=== PATIENT | female | born 1960 | race Caucasian/White ===

== ENCOUNTER 2019-07-28 12:26 | Inpatient (IN) | payer MEDICAID ==
[~2019-07-28] VITALS: Ht 160 cm; Wt 81.2 kg
[2019-07-28 13:19] VITALS: BP 127/77
[2019-07-28] MEDS ORDERED: HALOPERIDOL 5 MG TABLET PO PRN (13:45)
[2019-07-28] MEDS ORDERED: ZOLPIDEM TARTRATE 10 MG TABLET PO PRN (13:45)
[2019-07-28 14:47] VITALS: BP 127/77
[2019-07-28] MEDS: LORazepam 2 MG TABLET PO PRN (16:57)
[2019-07-28] MEDS ORDERED: INFLUENZA VIRUS VACCINE QVS 2019-20 (3YR+)/PF 60 MCG/0.5 ML SYRINGE IM ONE (17:00)
[2019-07-28 17:32] VITALS: BP 106/74
[2019-07-28] MEDS ORDERED: LOPERAMIDE HCL 2 MG CAPSULE PO PRN (20:45)
[2019-07-28] MEDS ORDERED: ONDANSETRON HCL 4 MG TABLET PO PRN (20:45)
[2019-07-28] MEDS ORDERED: IBUPROFEN 400 MG TABLET PO PRN (20:45)
[2019-07-28] MEDS ORDERED: NICOTINE 14 MG/24 HOUR PATCH TD PRN (20:45)
[2019-07-28] MEDS ORDERED: MAG HYDROX/AL HYDROX/SIMETH ES 30 ML SUSPENSION UDCUP PO PRN (20:45)
[2019-07-28] MEDS ORDERED: CloNIDine HCL 0.1 MG TABLET PO PRN (20:45)
[2019-07-28] MEDS ORDERED: ACETAMINOPHEN 325 MG TABLET PO PRN (20:45)
[2019-07-28] MEDS ORDERED: ALBUTEROL SULFATE HFA 90 MCG/PUFF 8 GM INHALER IH PRN (20:45)
[2019-07-28] MEDS ORDERED: PETROLATUM,WHITE 28 GM JELLY TP PRN (20:45)
[2019-07-28] MEDS ORDERED: GuaiFENesin/D-METHORPHAN [SUGAR-FREE] 200-20MG/10 ML SYRUP UDCUP PO PRN (20:45)
[2019-07-28] MEDS ORDERED: DOCUSATE SODIUM 100 MG CAPSULE PO PRN (20:45)
[2019-07-29 07:19] LABS: HEMOGLOBIN A1C 5.8 % (4.5-6.2)
[2019-07-29 07:42] LABS: CHOL/HDL RATIO 4.9 (3.9-5.7); FREE T4 (FREE THYROXINE) 1.11 ng/dL (0.76-1.46); THYROID STIMULATING HORMONE 1.3 uIU/mL (0.36-3.74)
[2019-07-29 08:47] LABS: AMPHET/METH SCREEN,URINE NEGATIVE (NEGATIVE); BARBITURATE SCREEN, URINE NEGATIVE (NEGATIVE); BENZODIAZEPINES SCREEN,URINE POSITIVE (NEGATIVE); CANNABINOID SCREEN,URINE POSITIVE (NEGATIVE); COCAINE SCREEN,URINE NEGATIVE (NEGATIVE); METHADONE SCREEN, URINE NEGATIVE (NEGATIVE); OPIATE SCREEN,URINE NEGATIVE (NEGATIVE)
[2019-07-29 08:50] LABS: BILIRUBIN,URINE NEGATIVE (NEGATIVE); GLUCOSE, URINE (UA) NEGATIVE (NEGATIVE); KETONES,URINE NEGATIVE (NEGATIVE); LEUKOCYTE ESTERASE ,URINE NEGATIVE (NEGATIVE); NITRATE,URINE NEGATIVE (NEGATIVE); OCCULT BLOOD,URINE NEGATIVE (NEGATIVE); PH,URINE 5.5 (5.0-8.0); PROTEIN,URINE NEGATIVE (NEGATIVE); UROBILINOGEN,URINE 0.2 mg/dL (<=1.0)
[2019-07-29 09:04] LABS: APPEARANCE,URINE CLEAR (CLEAR)
[2019-07-29] MEDS: MAGNESIUM HYDROXIDE SUSPENSION 30 ML UDCUP PO PRN (09:23)
[2019-07-29 09:28] LABS: PHENCYCLIDINE SCREEN,URINE NEGATIVE (NEGATIVE)
[2019-07-29 14:09] VITALS: BP 117/74
[2019-07-29] MEDS: LORazepam 2 MG TABLET PO PRN (14:39)
[2019-07-29] MEDS: FLUoxetine HCL 20 MG CAPSULE PO SCH (15:09)
[2019-07-29] MEDS: BusPIRone HCL 10 MG TABLET PO SCH ×2 (15:24→17:29)
[2019-07-29 21:24] VITALS: BP 120/77
[2019-07-30 08:57] VITALS: BP 103/77
[2019-07-30] MEDS: FLUoxetine HCL 20 MG CAPSULE PO SCH (09:33)
[2019-07-30] MEDS: BusPIRone HCL 10 MG TABLET PO SCH ×2 (09:33→16:28)
[2019-07-30] MEDS: MAGNESIUM HYDROXIDE SUSPENSION 30 ML UDCUP PO PRN (11:08)
[2019-07-30] MEDS: LORazepam 2 MG TABLET PO PRN (11:11)
[2019-07-30 17:29] VITALS: BP 106/66
[2019-07-31] MEDS: BusPIRone HCL 10 MG TABLET PO SCH (09:45)
[2019-07-31] MEDS: FLUoxetine HCL 20 MG CAPSULE PO SCH (09:45)
[2019-07-31] MEDS ORDERED: FLUO40CA7 PO (10:14)
[2019-07-31] MEDS ORDERED: BUSP10TA23 PO (10:14)
[2019-07-31 12:12] VITALS: BP 117/85
== END 2019-07-31 15:30 | disposition home or self-care (01) | DRG 885 ==
LOC: 3EI 13:49
PROVIDERS: ATTEND Psychiatry & Neurology Psychiatry
DX: F33.2 Major depressive disorder, recurrent severe without psychotic features (principal); R45.851 Suicidal ideations; F29 Unspecified psychosis not due to a substance or known physiological condition; F15.10 Other stimulant abuse, uncomplicated; K21.9 Gastro-esophageal reflux disease without esophagitis; F10.10 Alcohol abuse, uncomplicated; Y90.9 Presence of alcohol in blood, level not specified; F12.10 Cannabis abuse, uncomplicated; J45.909 Unspecified asthma, uncomplicated; E66.9 Obesity, unspecified; G43.909 Migraine, unspecified, not intractable, without status migrainosus; Z88.2 Allergy status to sulfonamides; Z88.8 Allergy status to other drugs, medicaments and biological substances; Z79.899 Other long term (current) drug therapy; Z91.5 Personal history of self-harm; Z68.31 Body mass index [BMI] 31.0-31.9, adult
CPT/HCPCS: 80307; 83036; 84439; 84443; 87081